=== PATIENT | male | born 1980 | race Caucasian/White ===

== ENCOUNTER 2025-03-02 22:56 | Emergency (ER) | payer BC ==
[2025-03-02 23:25] LABS: #Basophils 0.1 thou/uL (0.0-0.2); #Eosinophils 0.2 thou/uL (0.0-0.7); #Lymphocytes 1.1 thou/uL (1.20-3.40); #Monocytes 0.6 thou/uL (0.11-0.59); #Neutrophils 6.0 thou/uL (1.40-6.50); %Basophils 0.8 % (0.0-1.0); %Eosinophils 2.7 % (0.0-10.0); %Lymphocytes 13.7 % (21.0-51.0); %Monocytes 7.6 % (0.0-10.0); %Neutrophils 75.2 % (42.0-75.0); Hematocrit 42.7 % (42.0-52.0); Hemoglobin 14.7 g/dL (14.0-18.0); Mean Corpuscular Hemoglobin 29.2 pg (27.0-31.0); Mean Corpuscular Volume 84.7 fl (78.0-98.0); Platelet Count 308 10x3/uL (130-400); Red Blood Cell (RBC) Count 5.04 mill/uL (4.70-6.10); White Blood Cell (WBC) Count 8.0 10x3/uL (4.8-10.8)
[2025-03-02 23:27] LABS: Glucose, Urine (Dipstick) Negative (Negative); Leukocyte Negative (Negative); Protein, Urine (Dipstick) Trace mg/dL (Neg-Trace); Specific Gravity, Urine Greater/Equal 1.030 (1.005-1.030)
[2025-03-02 23:32] LABS: Bacteria/HPF Rare-Few HPF (None Seen); CAUTI Indications for Culture Dysuria,urgency,freq; Cocaine Metabolite Screen Negative (Negative); Mucous/LPF 2+ LPF (<2+); THC/Cannabinoid Screen Negative (Negative); Tricyclic Screen Negative (Negative); Urine Culture Reflex No No; WBC/HPF 0-3 HPF (0-3)
[2025-03-02 23:38] LABS: ALT (SGPT) 26 U/L (Less than 45); AST (SGOT) 22 U/L (11-34); Albumin 4.8 g/dL (3.1-4.5); Alkaline Phosphatase 66 U/L (40-110); Anion Gap 18 mmol/L (10-20); BUN (Urea Nitrogen) 20 mg/dL (8.9-20.6); Bilirubin, Total 0.7 mg/dL (0.3-1.2); Calc. Creatinine Clearance 0 mL/min (70-130); Calcium 9.6 mg/dL (7.8-10.44); Carbon Dioxide 21 mmol/L (22-29); Chloride 107 mmol/L (98-107); Globulin 3.0 g/dL (2.4-3.5); Glucose 142 mg/dL (70-105); Potassium 3.6 mmol/L (3.5-5.1); Sodium 142 mmol/L (136-145)
[2025-03-02 23:40] LABS: Acetaminophen Less than 10 mcg/mL (Less than 10); Salicylate Less than 8.0 mg/dL (Less than 8.0)
== END 2025-03-03 07:46 | disposition home or self-care (01) ==
LOC: NAV ERS 22:56
DX: T43.292A Poisoning by other antidepressants, intentional self-harm, initial encounter (principal); F32.A Depression, unspecified; F43.20 Adjustment disorder, unspecified; Z20.2 Contact with and (suspected) exposure to infections with a predominantly sexual mode of transmission; Z79.899 Other long term (current) drug therapy
CPT/HCPCS: 36415; 80053; 80306; 80307; 81001; 85025; 93005; 94760; 99285; Q0162

== ENCOUNTER 2025-03-18 19:52 | Emergency (ER) | payer BC ==
[2025-03-18] MEDS ORDERED: Azithromycin 250 MG TAB ONE (21:18)
== END 2025-03-18 21:30 | disposition home or self-care (01) ==
LOC: NAV ERS 19:52
DX: L23.7 Allergic contact dermatitis due to plants, except food (principal); L03.115 Cellulitis of right lower limb
CPT/HCPCS: 96372; 99283; J1010